=== PATIENT | female | born 1960 | race Caucasian/White ===

== ENCOUNTER 2016-10-18 18:03 | Emergency (ER) | payer SELFPAY ==
[~2016-10-18] VITALS: Ht 157.5 cm; Wt 86.2 kg
[~2016-10-18 18:03] MED LIST: BENTYL20 MG PO; CHLORDIAZEPOXID1 CAP PO; CIPROFLOXACIN500 MG PO; CYCLOBENZAPRINE10 MG PO; DIFLUCAN150 MG PO; GABAPENTIN 600600 MG PO; GLIPIZIDE10 MG PO; LORATADINE 10MG10 M1 PO; MECLIZINE HYDRO25 MG PO; MEDROL 4MG. DOSE4 MG PO; MELOXICAM15 MG PO; METFORMIN1000 MG PO; METFORMIN500 MG PO; NYSTATIN O15 GM/TUBE EX; OXYBUTYNIN5 MG PO; PHENAZOPYRIDIN200 MG PO; PROAIR HFA0.09 MG/AC IH; PROMETHAZINE HC25 M1 PO; ULTRAM50 MG PO
--- NOTE | 2016-10-18 18:46 | [facility]gent Treatment Center Report ---
History of Present Issue Date/Time Seen by Provider 10/18/16 4105 Visit Reason Pt arrived:Walked Presenting Problem:PT STATES SHE HAS HAD AN ONGOING INFECTION IN HER GUMS. PT STATES SHE THINKS SHE HAS AN ABCESSED TOOTH Location if Accident: Onset of symptoms date/time:/ or onset unknown for:MEDICAL HX UNKNOWN Have you (or family members/close friends) recently traveled outside the [place]? N If Yes, where/when: Have you had exposure to infectious disease within the past month? TB? Other? Specify: c/o "either a gum infection or tooth abscess". Poked front lower gum w/ a chip several days ago. Since then, mild redness surrounding area. No pus. Mild swelling initially. Mild pain. Hx of "brittle tooth disease". Reporting every tooth has a marion and that she knows she needs dental work "but just can't afford it". Rinsing with salt water. Swelling resolved but not redness. No fever , jaw pain, facial swelling. Adamant she can not take anything PCN related because of immunity. Refuses to take anything PCN related. Source patient Exam Limitations no limitations ALLERGIES Coded Allergies: aspirin (02/15/16) Home Medications Active Scripts Nystatin (Nystatin Ointment; 15GM Tube) 90 GM EX TID #3 OIN Ref 2 Prov: 02/20/16 Reported Medications Meclizine Hcl (Meclizine Hydrochloride) 25 MG PO TIDP PRN DIZZINESS Gabapentin (Gabapentin 600MG) 600 MG PO QIDP PRN BACK PAIN Loratadine (Loratadine 10MG Tablet) 10 MG PO DAILY Glipizide 10 MG PO DAILY PROMETHAZINE HCL (Promethazine 25mg Tab) 25 MG PO QIDP PRN NAUSEA/VOMITING METFORMIN HCL (Metformin) 1,000 MG PO BID OXYBUTYNIN CHLORIDE (Oxybutynin 5MG Tab) 5 MG PO BID PHENAZOPYRIDINE HCL (Phenazopyridine HCl) 200 MG PO TIDP PRN BLADDER PAIN Cyclobenzaprine Hcl (Cyclobenzaprine 10MG) 10 MG PO TIDP PRN BACK PAIN Albuterol Sulfate (Proair Hfa) 1 PUFF IH Q6HP PRN CHEST TIGHT FROM SMOKEY AIR History Medical History General CAD? No Angina: No DE: No Hypertension? No Hyperlipidemia? No CHF? No DVT? No PE? No COPD? No Asthma? Yes Anemia? No GERD? No Gastric ulcers? No GI Bleed? No Hernia? No Thyroid Problems? No Hypothyroidism? No CVA? No Seizures? No Diabetes? Yes Insulin Dependent: No Insulin Pump: No Home FSBS? No Renal Insuffiency? No UTI? No Stones? No BPH? No GB Disease: Yes Nephritic Syndrome? No Asplenia? No Hepatitis? No Sickle Cell Disease? No Arthritis? No Migraines? No Cataracts? No Glaucoma? No MRSA? No HIV? No TB? No Anxiety? No Depression? No Cancer? No More? No Immunization HX DT/Tetanus NOT SURE Flu 2015- Flu Season Pneumonia Received In Past Surgical Hx Previous Surgery?Y X 4 [place] Appendix T AND A R SHOULDER-ROTATOR CUFF L BREAST R ARM PIT VAGINAL MASS Family History Family HX Diabetes Yes CAD No Hypertension No Hyperlipidemia No Cancer No TB No Social History Smoking Hx Smoker: Never Smoker Tobacco: No Packs/day < 1 Pack Alcohol Alcohol: No Review of Systems All Other Systems Reviewed and Negative Constitutional see HPI ENT see HPI. Respiratory denies shortness of breath Gastrointestinal denies nausea, denies vomiting Skin see HPI Physical Exam Vital Signs Vital Signs Date Time Temp Pulse Resp B/P Pulse O2 O2 Flow FiO2 Ox Delivery Rate 10/18 1812 98.4 127 18 145/78 93 General Appearance no apparent distress, obese, dishelved appearance Ear, Nose, Throat dental caries (severe, all teeth, deep), missing teeth, broken teeth, obvious gum disease w/ acute gingivitis front lower gumline. No swelling or drainage. Moderate redness and tenderness. No laceration or puncture wound seen., airway patent, no maxillary or mandibular tenderness Neck non-tender, supple Respiratory Status No: respiratory distress. Cardiovascular no peripheral edema Neurologic alert, oriented x 3 Mental status normal mood/affect Skin normal color, warm/dry Lymphatic no adenopathy Medical Decision Making LABS/Meds/Orders Pt receiving controlled substance in ED? No Departure Departure Time of Disposition 1902 Disposition DC Home or Self Care(routine) Clinical Impression Primary Impression: Acute gingivitis Secondary Impressions: Dental caries Condition STABLE Referrals DAVID DENSON DMD,HE[employer] (Family) For new, worsening or peristant symptoms although really you need to see a dentist within the next 48 hours. I will list local dentist but if you already have one, you can see them instead. LORI SONG DMD,GISELLE Wick,GELY HERNANDEZ Patient Instructions DI for Gingivitis Additional Instructions * Rinse w/ peridex mouth rinse after meals * start antibiotic today. Be sure to complete entire prescription even if feeling better. * Follow up with dentist in 48 hours. Discharge Counseling Counseled pt/family regarding diagnosis, medications/RX, home care, follow up needs Prescriptions Current Visit Scripts Clindamycin Hcl (Clindamycin 300MG) 300 MG PO TID #30 CAP at 1912
[2016-10-18] MEDS ORDERED: CLINDAMYCIN HC300 MG PO (19:06)
[2016-10-18 19:07] VITALS: BP 145/78
== END 2016-10-18 19:10 | disposition home or self-care (01) ==
LOC: UTC 18:03
DX: K02.9 Dental caries, unspecified (principal); K05.00 Acute gingivitis, plaque induced

== ENCOUNTER → 2017-01-09 | Outpatient (CLI) | payer SELFPAY ==
[~2017-01-09] MED LIST changes: +CLINDAMYCIN HC300 MG PO
[2017-01-09 14:30] LABS: HEMOGLOBIN 14.4 g/dL (12.2-16.2); LYMPH # 3.4 K/mm3 (0.7-4.5); LYMPH % 33.4 % (10-50.0)
[2017-01-09 16:25] LABS: BUN 11 mg/dL (7-18)
[2017-01-09 16:47] LABS: GFR (ESTIMATED) 74 ML/MIN (59-)
[2017-01-09 17:13] LABS: AMPHETAMINES/METAMPHETAMINES NEGATIVE ng/mL (<1000)
[2017-01-10 05:41] LABS: Creatinine, Urine 62.3 mg/dL (Not Estab.); Microalbumin, Urine 19.6 ug/mL (Not Estab.)
== END ==
LOC: LAB 13:30
PROVIDERS: Nurse Practitioner Family
DX: E11.9 Type 2 diabetes mellitus without complications (principal); Z79.899 Other long term (current) drug therapy